=== PATIENT | female | born 1990 | race Caucasian/White ===

== ENCOUNTER 2017-01-28 08:04 | Day surgery (SDC) | payer OTHER ==
[~2017-01-28] VITALS: Ht 157.5 cm; Wt 81.6 kg
[~2017-01-28 08:04] MED LIST: FLEXERIL10 MG PO; MICRONOR0.35 MG PO; MOTRIN800 MG PO; Motrin PO; NAPROSYN500 MG PO; NO HOME MEDS
[2017-01-28 08:34] VITALS: BP 125/73
[2017-01-28] MEDS ORDERED: PERCOCET 5/31 TABLET PO (12:55)
[2017-01-28 14:40] VITALS: BP 100/54
[2017-01-28 15:40] VITALS: BP 110/56
== END 2017-01-28 15:50 | disposition home or self-care (01) ==
LOC: SDC 08:04
PROC: 0FT44ZZ Resection of Gallbladder, Percutaneous Endoscopic Approach (ICD-10-PCS; principal; 2017-01-28)
DX: K80.12 Calculus of gallbladder with acute and chronic cholecystitis without obstruction (principal); R74.0 Nonspecific elevation of levels of transaminase and lactic acid dehydrogenase [LDH]; R63.4 Abnormal weight loss; L70.0 Acne vulgaris; K21.9 Gastro-esophageal reflux disease without esophagitis; E66.3 Overweight; Z68.34 Body mass index [BMI] 34.0-34.9, adult; Z82.49 Family history of ischemic heart disease and other diseases of the circulatory system; Z83.49 Family history of other endocrine, nutritional and metabolic diseases; Z83.3 Family history of diabetes mellitus
CPT/HCPCS: 88304; J0330; J0690; J1100; J1170; J1885; J2250; J2405; J2710; J3010